=== PATIENT | male | born 1975 | race Caucasian/White ===

== ENCOUNTER 2017-07-28 07:48 | Outpatient (CLI) | payer MEDICARE ==
--- NOTE | 2017-07-28 12:51 | NM ---
NUCLEAR MEDICINE GASTRIC EMPTYING EXAMINATION: 07/28/2017 HISTORY: Gastroparesis. COMPARISON: None. TECHNIQUE: The patient ingested 2.01 millicuries technetium 99m labeled sulfur colloid in a scrambled egg, and a nterior planar imaging of the abdomen is obtained over 4 hours. FINDINGS: There is radiotracer activity within the stomach on post ingestion imaging. There is 6% emptying at 60 minutes, 30% emptying at 2 hours, 54% emptying at 3 hours, and 61% emptying at 4 hours, for a T-1/ 2 of 166 minutes. This is abnormal, as normal half-time is 90 minutes or less. IMPRESSION: Delayed gastric emptying. POS: GIOVANNI
== END 2017-07-28 07:49 | disposition home or self-care (01) ==
LOC: NM 07:48
PROVIDERS: ATTEND Internal Medicine
DX: K31.84 Gastroparesis (principal)
CPT/HCPCS: 78264; A9541

== ENCOUNTER 2017-11-22 08:09 | Day surgery (SDC) | payer MEDICARE ==
[2017-11-21 14:36] VITALS: BMI 21.1
[2017-11-22 09:38] LABS: Anion Gap 9 mmol/L (10-20); BUN (Urea Nitrogen) 10 mg/dL (8.9-20.6); Calc. Creatinine Clearance 88 mL/min (70-130); Calcium 9.6 mg/dL (7.8-10.44); Carbon Dioxide 27 mmol/L (22-29); Chloride 99 mmol/L (98-107); Estimated GFR-MDRD 82; Glucose 235 mg/dL (70-105); Potassium 4.2 mmol/L (3.5-5.1); Sodium 131 mmol/L (136-145)
[2017-11-22] MEDS ORDERED: Midazolam HCl 2 mg/2 ml Vial ONE (09:57)
[2017-11-22] MEDS ORDERED: EPINEPHrine 1 MG/ML AMP ONE (11:33)
[2017-11-22] MEDS ORDERED: Famotidine/PF 20 mg/2ml Vial ONE (11:37)
[2017-11-22] MEDS ORDERED: Fentanyl 100 MCG/2 ML VIAL ONE ×2 (11:37→12:40)
--- NOTE | 2017-11-23 12:34 | OP ---
DATE OF PROCEDURE: 11/22/2017 PREOPERATIVE DIAGNOSES: 1. Right oropharyngeal papilloma. 2. Dysphagia. POSTOPERATIVE DIAGNOSES: 1. Right oropharyngeal papilloma. 2. Dysphagia. PROCEDURES: Microsuspension direct laryngoscopy with biopsy. SURGEON: Ceasar Ross M.D. ESTIMATED BLOOD LOSS: 0 mL. COMPLICATIONS: None. ANESTHESIA: GETA. PROCEDURE: The patient was taken to the operating room and placed supine on the table. General endo tracheal anesthesia obtained by the Anesthesia staff. Following this, head of the bed was turned 90 degrees, a shoulder roll was placed and the patient was positioned for a direct laryngoscopy. Follow ing this, the Dedo laryngoscope was then introduced in the oral cavity. The oral cavity mucosa was n oted to be within normal limits. The patient was edentulous. [facility]. The base of tongue was examined. There was tonsils noted to be 2-3+ slightly cryptic. From th e inferior anterior pillar of the right tonsil was a pedunculated 2 x 3 cm papillomatous-like lesion. This was grasped with a straight forceps and then excised with a normal margin of mucosa using the laryngeal scissors and the operating microscope. Following this, the laryngeal structures were all e xamined and were noted to be within normal limits. The patient tolerated the procedure well.
--- NOTE | 2017-11-23 16:57 | EKG ---
Test Reason : PREOP Blood Pressure : / mmHG Vent. Rate : 087 BPM Atrial Rate : 087 BPM P-R Int : 154 ms QRS Dur : 094 ms QT Int : 348 ms P-R-T Axes : 072 093 080 degrees QTc Int : 418 ms Normal sinus rhythm Rightward axis ST elevation, consider early repolarization, pericarditis, or injury Abnormal ECG Confirmed by NELSON ALVA ([id number]) on 11/23/2017 4:56:46 PM Referred By: TIMOTHY Confirmed By:NELSON ALVA
== END 2017-11-22 14:10 | disposition home or self-care (01) ==
LOC: SDC 08:09
PROVIDERS: ATTEND Otolaryngology Plastic Surgery within the Head & Neck
PROC: 0CBM8ZX Excision of Pharynx, Via Natural or Artificial Opening Endoscopic, Diagnostic (ICD-10-PCS; principal; 2017-11-22)
DX: D10.4 Benign neoplasm of tonsil (principal); E78.5 Hyperlipidemia, unspecified; E10.40 Type 1 diabetes mellitus with diabetic neuropathy, unspecified; E10.69 Type 1 diabetes mellitus with other specified complication; K52.89 Other specified noninfective gastroenteritis and colitis; F51.04 Psychophysiologic insomnia; Z87.891 Personal history of nicotine dependence; Z79.4 Long term (current) use of insulin; Z79.82 Long term (current) use of aspirin; Z79.899 Other long term (current) drug therapy; Z88.0 Allergy status to penicillin; Z88.8 Allergy status to other drugs, medicaments and biological substances
CPT/HCPCS: 36416; 80048; 88305; 93005; 93010; 96374; J0171; J2250; J3010; S0028

== ENCOUNTER 2024-01-19 14:41 | Outpatient (CLI) | payer OTHER | END 2024-01-19 14:42 | disposition home or self-care (01) | LOC: BICMAMMO 14:41 | PROVIDERS: ATTEND Family Medicine | DX: M81.8 Other osteoporosis without current pathological fracture (principal); M85.89 Other specified disorders of bone density and structure, multiple sites | CPT/HCPCS: 77080 ==